=== PATIENT | female | born 1965 | race Caucasian/White ===

== ENCOUNTER 2024-09-07 06:51 | Day surgery (SDC) | payer OTHER ==
[2024-09-07] MEDS: Lactated Ringers 1,000 ML IV SCH (08:19)
[2024-09-07] MEDS ORDERED: fentaNYL 50 MCG/ML SDV ONE (08:26)
[2024-09-07] MEDS ORDERED: Propofol 200 MG/20 ML SDV ONE (08:26)
[2024-09-07] MEDS ORDERED: Midazolam 1 MG/ML 2 ML SDV ONE (08:26)
[2024-09-07] MEDS ORDERED: Ondansetron 4 MG/2 ML SDV ONE (08:54)
== END 2024-09-07 11:58 | disposition home or self-care (01) ==
LOC: JP.SDS 06:51
PROVIDERS: ATTEND Surgery
DX: Z12.11 Encounter for screening for malignant neoplasm of colon (principal); K63.5 Polyp of colon; Z80.0 Family history of malignant neoplasm of digestive organs
CPT/HCPCS: 00811; 45385; 88305; J2250; J2405; J2704; J3010; J7120